=== PATIENT | male | born 1950 | race African-American/Black ===

== ENCOUNTER 2018-03-31 08:19 | Day surgery (SDC) | payer OTHER ==
[~2018-03-31] VITALS: Ht 180.3 cm; Wt 106.1 kg
[2018-03-31] VITALS (11 sets, daily range): BP systolic 113–148; BP diastolic 70–95
--- NOTE | 2018-03-31 07:06 | Pre-Procedure Note/Attestation ---
Pre-Procedure Note/Attestation Complete Prior to Procedure Planned Procedure: right Procedure Narrative: rt knee scope, medial meniscectomy and chondroplasty Indications for Procedure Pre-Operative Diagnosis: rt knee medial meniscus tear Attestation I attest that I discussed the nature of the procedure; its benefits; risks and complications; and alternatives (and the risks and benefits of such alternatives ), prior to the procedure, with the patient (or the patient's legal leasing representative). I attest that, if there was a reasonable possibility of needing a blood transfusion, the patient (or the patient's legal leasing representative) was given the [facility] standardized written summary, pursuant to the Hardik Kinsey Blood Safety Act ([place] Health and Safety Code # 1645, as amended). I attest that I re-evaluated the patient just prior to the surgery and that there has been no change in the patient's H&P, except as documented below: none MUKUND MCKINNEY March 31, 2018 07:06
[~2018-03-31 08:19] MED LIST: COD LIVER OIL1 EAC1 ORAL; COSOPT EYE DROP10 M1 OP; EAC ORAL; FLAXSEED1000 MG ORAL; GARLIC OIL1000 MG ORAL; LATANOPROST2.5 ML BOTH EYES; SAW PALMETTO450 MG ORAL; VITAMIN C500 M1 ORAL; ceFAZolin 1gm in D5W 55ml IVP ONE; celeBREX 200mg Cap **SURGERY PATIENTS ONLY ORAL ONE; oxyCONTIN 20mg tab ORAL ONE
[2018-03-31] MEDS ORDERED: Tylenol #3 tab (300mg/30mg) ORAL PRN (09:00)
[2018-03-31] MEDS ORDERED: Norco 5mg/325mg tab ORAL PRN (09:00)
[2018-03-31] MEDS ORDERED: D5 1/2NS 1,000 ML IV SCH (09:00)
[2018-03-31] MEDS ORDERED: VITAMIN B6 PO (09:22)
[2018-03-31] MEDS ORDERED: TURMERIC ROOT5000 GM MC (09:22)
[2018-03-31] MEDS ORDERED: ASPIR 8181 MG ORAL (09:22)
[2018-03-31] MEDS ORDERED: celeBREX 200mg Cap **SURGERY PATIENTS ONLY ORAL ONE (09:52)
[2018-03-31] MEDS ORDERED: oxyCONTIN 20mg tab ORAL ONE (09:52)
[2018-03-31] MEDS ORDERED: Midazolam 2mg/2ml Inj ONE (10:49)
[2018-03-31] MEDS ORDERED: Lidocaine 1% MPF 10mg/ml 5ml ONE (10:49)
[2018-03-31] MEDS ORDERED: fentaNYL 100 mcg/2 mL IV ONE (10:49)
[2018-03-31] MEDS ORDERED: Propofol 200mg/20ml IV ONE (10:49)
--- NOTE | 2018-03-31 10:53 | Anethesia Preoperative Eval ---
Anesthesia Pre-op PMH/ROS General Date of Evaluation: March 31, 2018 Anesthesiologist: Harshil ASA Score: ASA 2 Mallampati Score Class I : Soft palate, uvula, fauces, pillars visible Class II: Soft palate, uvula, fauces visible Class III: Soft palate, base of uvula visible Class IV: Only hard plate visible Mallampati Classification: Class III Surgeon: Efren Diagnosis: Right knee pain Surgical Procedure: Right knee surgery Anesthesia History: none Family History: no anesthesia problems Allergies: Coded Allergies: No Known Allergies (Unverified , 03/31/18) Medications: see eMAR Past Medical History Cardiovascular: Denies: HTN, CAD, [place], valve dz, arrhythmia, other Pulmonary: Denies: asthma, COPD, DREW, other Gastrointestinal/Genitourinary: Denies: GERD, CRI, ESRD, other Neurologic/Psychiatric: Denies: dementia, CVA, depression/anxiety, TIA, other Endocrine: Denies: DM, hypothyroidism, steroids, other HEENT: Denies: cataract (L), cataract (R), glaucoma, [place] (L), [place] (R), other Hematology/Immune: Denies: anemia, DVT, bleeding disorder, other Musculoskeletal/Integumentary: Denies: OA, RA, DJD, DDD, edema, other Other: obesity PSxH Narrative: cat sx, left elbow, left knee, left shoulder sx Anesthesia Pre-op Phys. Exam Physician Exam Last Vital Signs Date Time Temp Pulse Resp B/P (MAP) Pulse Ox O2 Delivery O2 Flow Rate FiO2 03/31/18 09:16 97.0 70 18 113/70 100 Room Air 97.0 Constitutional: NAD Cardiovascular: RRR Respiratory: CTA Airway Exam Mallampati Score: Class III MO: limited ROM: full Teeth: intact Anesthesia Pre-op A/P Labs see chart Studies Pre-op Studies: EKG - sr Risk Assessment & Plan Assessment: ASA II Plan: GA Status Change Before Surgery: No Pre-Antibiotics Drug: Ancef 2g Given Within 1 Hr of Incision: SLICK Sheets M.D. March 31, 2018 10:53
[2018-03-31] MEDS ORDERED: LR 1000ml 1,000 ML IVLG SCH (10:54)
--- NOTE | 2018-03-31 10:57 | 48 Hour Post Anesthesia Eval ---
Post Anesthesia Evaluation Procedure: Right knee arthroscopy, medial meniscectomy Date of Evaluation: March 31, 2018 Airway: patent Nausea: No Vomiting: No Pain Intensity: 0 Hydration Status: adequate Cardiopulmonary Status: at baseline Mental Status/LOC: patient returned to baseline Post-Anesthesia Complications: 0 Follow-up care needed: ready to discharge SLICK EDWARD M.D. March 31, 2018 10:57
--- NOTE | 2018-03-31 10:57 | Immediate Post-Op Evaluation ---
Immediate Post-Op Evalulation Immediate Post-Op Evalulation Procedure: Right knee arthroscopy, medial meniscectomy Date of Evaluation: March 31, 2018 Time of Evaluation: 12:04 IV Fluids: 800 Blood Products: 0 Estimated Blood Loss: 0 Urinary Output: 0 Blood Pressure Systolic: 119 Blood Pressure Diastolic: 85 Pulse Rate: 77 Respiratory Rate: 16 O2 Sat by Pulse Oximetry: 100 Temperature (Fahrenheit): 97.9 Pain Score (1-10): 0 Nausea: No Vomiting: No Complications 0 Patient Status: awake, reacts, patent, none Hydration Status: adequate Drug: Ancef 2g Given Within 1 Hr of Incision: Yes Time Given: 11:20 SLICK EDWARD M.D. March 31, 2018 10:57
[2018-03-31] MEDS ORDERED: LORazepam Inj 2mg/ml 1ml IV PRN (11:00)
[2018-03-31] MEDS ORDERED: fentaNYL 100 mcg/2 mL IV PRN (11:00)
[2018-03-31] MEDS ORDERED: LR 1000ml ONE (11:00)
[2018-03-31] MEDS ORDERED: Ketorolac 30mg Inj IV PRN (11:00)
[2018-03-31] MEDS ORDERED: Midazolam 2mg/2ml Inj IVP PRN (11:00)
[2018-03-31] MEDS ORDERED: DiphenhydrAMINE 50mg/ml Inj IVP PRN (11:00)
[2018-03-31] MEDS ORDERED: Ropivacaine 5mg/ml Vial 30ml INJ ONE (11:08)
--- NOTE | 2018-03-31 11:49 | Brief Operative Note ---
Immediate Post Operative Note Operative Note Chief Complaint: rt knee pain Pre-op Diagnosis: rt knee medial meniscus tear Procedure: rt knee scope, medial and lateral meniscectomy with chondroplasty Post-op Diagnosis: same as pre-op Findings: consistent w/pre-op dx studies Surgeon: md satish Warehouse Supervisor 3Rd Shift: ángela rodriguez Anesthesiologist: md mk Anesthesia: general Specimen: none Complications: none Condition: stable Fluids: ns Estimated Blood Loss: minimal Drains: none Implant(s) used?: No BETI RODRIGUEZ March 31, 2018 11:49
--- NOTE | 2018-03-31 16:30 | Operative Note - Dictated ---
DATE OF OPERATION: 03/31/2018 PREOPERATIVE DIAGNOSIS: Right knee medial meniscus tearing with swelling and pain. POSTOPERATIVE DIAGNOSES: 1. 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 2. Right knee free edge tear of the posterior horn body of lateral meniscus. 3. Right knee evidence of prior meniscectomy with recurrent meniscus tearing of the posterior horn body of meniscus involving 20% of the remnant. 4. Right knee chondral damage over the weightbearing zone of medial femoral condyle measuring 1.2 cm x 1 cm with unstable chondral flap grade 4. PROCEDURE: 1. Right knee arthroscopy and extensive intra-articular shaving. 2. Right knee patellofemoral chondroplasty. 3. Right knee medial femoral abrasion chondroplasty of 1.2 cm lesion. 4. Right knee partial lateral meniscectomy involving 15% of posterior horn body of lateral meniscus. 5. Right knee partial revision medial meniscectomy involving 15% of the remnant of the posterior horn body of medial meniscus. SURGEON: Ramez Deluna M.D. POLICE SERGEANT: Stephanie Pratt PA-C. Press Shop Supervisor was present during the actual operative portion of the case and was important and essential part of the operation. During the operation, the hospital aides and assistants teacher held and operated the arthroscopic camera for visualization, assisted by manipulating the leg to help with visualization, and helped with essential parts of the repair process as necessary such as operating surgical instruments under surgeon supervision, suture management, and wound closures. ANESTHESIOLOGIST: Dr. Chua. ANESTHESIA: LMA anesthesia EBL: Less than 20 mL. COMPLICATIONS: None. SURGICAL INDICATION: Patient is a 68-year-old male who sustained the above injury to his Knee. The patient was treated non-operative initially, but this did not alleviate the patients symptoms. Therefore, after discussing all non-surgical and surgical options, and discussing all foreseeable risk and benefits of surgery, the patient opted for surgical treatment as described above. PATIENT POSITIONING: Patient was brought to the operating room table and placed supine. All pressure points were well padded. General Anesthesia was induced and a well padded tourniquet was placed on the thigh. The lateral post was placed and positioned to allow for opening of the medial compartment of the knee without placing pressure over the fibular head. Patients entire leg was prepped and draped in the usual sterile fashion. Time out was perfomred and preop abx was given and after exsanguinating the lower extremity, the tourniquet was inflated to 275mm of mercury. EXAMINATION OF THE KNEE UNDER ANESTHESIA: Before prepping and draping the knee and while the patient was relaxed under general anesthesia, the knee was examined for ROM, and anterior and posterior, medial and lateral, posterolateral, and posteromedial instability. Pivot shift testing was performed. There was no evidence of loss of motion or instability and the pivot shift testing was negative. PORTAL PLACEMENT: The lateral portal was placed with the knee flexed to 90 degrees at the level of inferior border of the patella in line with the lateral border of the patella. A cm skin incision was made with an eleven blade, and using a blunt obturator, the capsule was gently penetrated. Sterile saline solution was then infused inside the knee with the aid of a pump set at 35 mm mercury pressure. Under direct visualization, placement of the medial portal was preliminary judged using a spinal needle, and it was subsequently established using the same technique as the lateral portal. Care was given not to injure the cutaneous branches of the medial Saphenous nerve or the subcutaneous veins. DIAGNOSTIC ARTHROSCOPY: The suprapatellar patellar pouch was visualized. There was no evidence of scar tissue or loose fragments. The medial and lateral patellar facets and trochlear groove articular cartilage was visualized. There was some traumatic chondral lesion over the lateral patellar facet inferiorly. This is consistent with traumatic lesion due to the fact that there was no trochlear lesion and this was not degenerative and arthritic in nature. The medial plica shelf and the corresponding medial femoral condyle articular cartilage were visualized. There was no significantly thickening of the medial plica shelf and there were no kissing? lesion over the medial femoral condyle. The lateral gutter and the posterolateral corner of the knee were visualized. There were no loose bodies, and the popliteus tendon and other structures of the posterolateral corner of the knee were intact intra-articularly. At this point, the knee was placed in the figure of four position and the lateral compartment was entered. The lateral femoral condyle, lateral tibial plateau, and the anterior, body, and the posterior horn of the lateral meniscus were visualized and probed. The articular surfaces were intact and devoid of articular cartilage damage. There was a free edge tear of the posterior horn and body lateral meniscus involving 15% to 20% lateral meniscus. The knee was then placed at 90 degree and the ACL and PCL were visualized and probed. The ACL was completely intact on visualization and probing, and it had excellent tension. The PCL was completely intact on visualization and probing and it had excellent tension. The medial compartment was then entered and the medial femoral condyle, medial tibial plateau, and the anterior, body, and the posterior horn of the medial meniscus were visualized and probed. There was a chondral lesion measuring 1.2 cm x 1 cm over the weightbearing zone of medial femoral condyle. This was grade 4 chondromalacia. There was some unstable chondral edges. There was evidence of previous meniscectomy and there was 15% tear of the remnant of the posterior horn body of medial meniscus. The medial gutter was visualized. There was no evidence of defect or loose fragments. The scope was then brought back to the patella femoral compartment. OPERATIVE ARTHROSCOPY: At this point, all loose debris and fragments were removed with the use of suction motorized shaver. Specific attention was given to assure all visible loose fragments were irrigated out of the knee joint with pump inflow and cannula outflow system. For patella femoral chondroplasty, The frayed articular cartilage of the undersurface of the patella and the trochlear groove were debrided using a motorized shaver. Suction was used to pull in the loose fragments and flaps of the cartilage and to minimize damage to the intact and well attached portion of the cartilage. This allowed for a smooth surface for the articular cartilage gliding. For lateral meniscectomy, at this point, attention was given to the lateral meniscus. Using combination of baskets and sameer, the torn portion of the lateral meniscus was removed. Attention was given to remove all displaced and unstable portion of the lateral meniscus while maintaining as much of the functional portion of the meniscus as possible. Approximately, 15% to 20% of the posterior horn body of the meniscus was removed in this fashion. The transition between the meniscectomy portion and intact portion of the meniscus was smoothed out with combination of small baskets and sameer. Excellent transition zone was obtained in this fashion. For medial meniscectomy, At this point, attention was given to the medial meniscus. Using combination of baskets and sameer, the torn portion of the medial meniscus was removed. Attention was given to remove all displaced and unstable portion of the medial meniscus while maintaining as much of the functional portion of the meniscus as possible. Approximately, 15% of the posterior horn body of the medial meniscus was removed in this fashion. The transition between the meniscectomy portion and intact portion of the meniscus was smoothed out with combination of small baskets and sameer. Excellent transition zone was obtained in this fashion. For medial compartment chondroplasty, care was given to the area of cartilage damage in the medial compartment. The fayed and loose fragments of articular cartilage were debrided using a motorized shaver. Suction was used to pull in the loose fragments and flaps of the cartilage and to minimize damage to the intact and well attached portion of the cartilage. This allowed for smooth surfaces for the articular cartilage. At this point, care was given to the abrasion chondroplasty using a shaver in forward motion, a slight abrasion of the medial femoral condyle was performed debriding blood supply to the surface of the bone for fibrocartilage regeneration. The contour of the femur was not altered in any manner. All unstable cartilage flaps were removed. CONDITION AT DISCHARGE FROM OPERATING ROOM: The knee was irrigated with copious amount of normal saline at the end of the procedure. The scope was removed and the water was drained. The skin edges were re-approximated and sterile dressing was applied. All lap count and instrument counts were correct. Patient tolerated the procedure well without complications and was taken to the recovery room in stable conditions. Ramez Deluna M.D. DR: Lane JOB#: [id number] CC:
== END 2018-03-31 14:00 | disposition home or self-care (01) ==
LOC: SUR 08:19
DX: S83.241A Other tear of medial meniscus, current injury, right knee, initial encounter (principal); S83.281A Other tear of lateral meniscus, current injury, right knee, initial encounter; E78.5 Hyperlipidemia, unspecified; X58.XXXA Exposure to other specified factors, initial encounter; Y93.9 Activity, unspecified; Y92.9 Unspecified place or not applicable
CPT/HCPCS: 29880; J0690; J2250; J2704; J2795; J3010; J7120

== ENCOUNTER → 2018-09-15 | Day surgery (SDC) | payer OTHER ==
[2018-09-15] VITALS (9 sets, daily range): BP systolic 118–148; BP diastolic 78–97
[~2018-09-15] VITALS: Ht 180.3 cm; Wt 104.3 kg
[~2018-09-15] MED LIST changes: +ASPIR 8181 MG ORAL; +Bupivacaine w/Epi 0.5% 30ml Vial INJ ONE; +D5 1/2NS 1,000 ML IV SCH; +GINGER ROOT1 GM MC; +HYDROmorphone 1mg/ml Carpuject SUBQ PRN; +LR 1000ml ONE; +Lidocaine 1% MPF 10mg/ml 5ml ONE; +Metoclopramide 10mg/2ml Inj ONE; +Midazolam 2mg/2ml Inj ONE; +NS Irrig 4000ml IRRIG ONE; +Norco 5mg/325mg tab ORAL PRN; +Propofol 200mg/20ml IV ONE; +Ropivacaine 5mg/ml Vial 30ml INJ ONE; +TURMERIC ROOT5000 GM MC; +Tylenol #3 tab (300mg/30mg) ORAL PRN; +VITAMIN B6 PO; +ceFAZolin 1gm IVPB IVPB ONE; -ceFAZolin 1gm in D5W 55ml IVP ONE; +fentaNYL 100 mcg/2 mL IV ONE; +fentaNYL 100 mcg/2 mL IV PRN
--- NOTE | 2018-09-15 07:01 | Pre-Procedure Note/Attestation ---
Pre-Procedure Note/Attestation Complete Prior to Procedure Planned Procedure: left Procedure Narrative: left knee scope, medial meniscectomy and chondroplasty Indications for Procedure Pre-Operative Diagnosis: left knee medial meniscus tear Attestation I attest that I discussed the nature of the procedure; its benefits; risks and complications; and alternatives (and the risks and benefits of such alternatives ), prior to the procedure, with the patient (or the patient's legal escrow representative). I attest that, if there was a reasonable possibility of needing a blood transfusion, the patient (or the patient's legal escrow representative) was given the [facility] standardized written summary, pursuant to the Hardik Kinsey Blood Safety Act ([place] Health and Safety Code # 1645, as amended). I attest that I re-evaluated the patient just prior to the surgery and that there has been no change in the patient's H&P, except as documented below: none Ramez Deluna MD Sep 15, 2018 07:01
--- NOTE | 2018-09-15 11:19 | Anethesia Preoperative Eval ---
Anesthesia Pre-op PMH/ROS General Date of Evaluation: Sep 15, 2018 Time of Evaluation: 10:30 Anesthesiologist: luli ASA Score: ASA 2 Mallampati Score Class I : Soft palate, uvula, fauces, pillars visible Class II: Soft palate, uvula, fauces visible Class III: Soft palate, base of uvula visible Class IV: Only hard plate visible Mallampati Classification: Class II Surgeon: EVER Diagnosis: knee pain Surgical Procedure: Left knee arthroscopy Anesthesia History: none Family History: no anesthesia problems Allergies: Coded Allergies: No Known Allergies (Unverified , 09/15/18) Medications: see eMAR Patient NPO?: Yes NPO Date: Sep 14, 2018 NPO Time: 23:59 Past Medical History Cardiovascular: Denies: HTN, CAD, [place], valve dz, arrhythmia, other Pulmonary: Denies: asthma, COPD, DREW, other Gastrointestinal/Genitourinary: Denies: GERD, CRI, ESRD, other Neurologic/Psychiatric: Denies: dementia, CVA, depression/anxiety, TIA, other HEENT: Denies: cataract (L), cataract (R), glaucoma, [place] (L), [place] (R), other Hematology/Immune: Denies: anemia, DVT, bleeding disorder, other Musculoskeletal/Integumentary: Reports: DJD PSxH Narrative: rigth knee scope Anesthesia Pre-op Phys. Exam Physician Exam Last Vital Signs Date Time Temp Pulse Resp B/P (MAP) Pulse Ox O2 Delivery O2 Flow Rate FiO2 09/15/18 10:00 Room Air 09/15/18 10:00 98.7 63 18 118/82 99 98.7 Constitutional: NAD Neurologic: CN 2-12 intact Cardiovascular: RRR Respiratory: CTA Gastrointestinal: S/NT/ND Airway Exam Mallampati Classification 2 Mallampati Score: Class II MO: full ROM: full Dentures: no upper, no lower Anesthesia Pre-op A/P Studies Pre-op Studies: EKG - sr Risk Assessment & Plan Plan: general lma Status Change Before Surgery: No Pre-Antibiotics Drug: ancef Given Within 1 Hr of Incision: Yes Time Given: 10:35 Adamaris Pollard CRNA Sep 15, 2018 11:19
--- NOTE | 2018-09-15 11:27 | Brief Operative Note ---
Immediate Post Operative Note Operative Note Chief Complaint: left knee pain Pre-op Diagnosis: left knee medial meniscus tear Procedure: left knee scope medial and lateral meniscectomy and chondroplasty Post-op Diagnosis: same as pre-op Findings: consistent w/pre-op dx studies Surgeon: md satish Lean Leader: ángela rodriguez Anesthesiologist: md addison/cuco Anesthesia: general Specimen: none Complications: none Condition: stable Fluids: ns Estimated Blood Loss: minimal Drains: none Implant(s) used?: No Stephanie Rodriguez Sep 15, 2018 11:27
--- NOTE | 2018-09-15 11:41 | Immediate Post-Op Evaluation ---
Immediate Post-Op Evalulation Immediate Post-Op Evalulation Procedure: left knee arthroscopy Date of Evaluation: Sep 15, 2018 Time of Evaluation: 11:35 IV Fluids: 500 Blood Pressure Systolic: 137 Blood Pressure Diastolic: 91 Pulse Rate: 68 Respiratory Rate: 14 O2 Sat by Pulse Oximetry: 100 Temperature (Fahrenheit): 97.8 Pain Score (1-10): 0 Nausea: No Vomiting: No Complications none Patient Status: awake, reacts, patent Hydration Status: adequate Drug: ancef Given Within 1 Hr of Incision: Yes Time Given: 10:55 Adamaris Pollard CRNA Sep 15, 2018 11:41
--- NOTE | 2018-09-15 13:30 | 48 Hour Post Anesthesia Eval ---
Post Anesthesia Evaluation Procedure: left knee arthroscopy Date of Evaluation: Sep 15, 2018 Time of Evaluation: 13:30 Nausea: No Vomiting: No Geronimo Landon MD Sep 15, 2018 13:30
--- NOTE | 2018-09-15 23:00 | Operative Note - Dictated ---
DATE OF OPERATION: 09/15/2018 PREOPERATIVE DIAGNOSIS: Left knee meniscus tear. POSTOPERATIVE DIAGNOSES: 1. Left knee free edge tear of the posterior horn of lateral meniscus involving 15% of the lateral meniscus. 2. Left knee complex tear of the posterior horn and body of the medial meniscus involving the vertical tear as well as a horizontal cleavage tear involving 25% of the medial meniscus. 3. Left knee mild patellofemoral arthritis with some osteophytes. 4. Left knee focal area of chondral damage over the medial tibial plateau measuring 7 x 7 mm around the area of the medial meniscus tear as well as a 1.5 x 1.5 cm of the diffuse chondral damage over the medial femoral condyle corresponded to the area of the medial meniscus tear. PROCEDURE: 1. Left knee arthroscopy and extensive intra-articular shaving. 2. Left knee patellofemoral as well as medial femoral chondroplasty. 3. Left knee partial lateral meniscectomy involving 15% of posterior horn of the lateral meniscus. 4. Left knee partial medial meniscectomy involving 25% of posterior horn body of the medial meniscus. SURGEON: Ramez Deluna M.D. [employer] PROFESSOR: Stephanie Pratt PA-C. ANESTHESIOLOGIST: Stephanie Sutherland MD ANESTHESIA: General LMA anesthesia combined with adductor block. ESTIMATED BLOOD LOSS: Less than 20 mL. TOURNIQUET TIME: 35 minutes. COMPLICATIONS: None. SURGICAL INDICATION: The patient is a 68-year-old male, who sustained the above injury to his knee. The patient was treated non-operative initially, but this did not alleviate the patients symptoms. Therefore, after discussing all non-surgical and surgical options, and discussing all foreseeable risk and benefits of surgery, the patient opted for surgical treatment as described above. PATIENT POSITIONING: Patient was brought to the operating room table and placed supine. All pressure points were well padded. General Anesthesia was induced and a well padded tourniquet was placed on the thigh. The lateral post was placed and positioned to allow for opening of the medial compartment of the knee without placing pressure over the fibular head. Patients entire leg was prepped and draped in the usual sterile fashion. Time out was performed and preop abx was given and after exsanguinating the lower extremity, the tourniquet was inflated to 275 mm of mercury. EXAMINATION OF THE KNEE UNDER ANESTHESIA: Before prepping and draping the knee and while the patient was relaxed under general anesthesia, the knee was examined for ROM, and anterior and posterior, medial and lateral, posterolateral, and posteromedial instability. Pivot shift testing was performed. There was no evidence of loss of motion or instability and the pivot shift testing was negative. PORTAL PLACEMENT: The lateral portal was placed with the knee flexed to 90 degrees at the level of inferior border of the patella in line with the lateral border of the patella. A cm skin incision was made with an eleven blade, and using a blunt obturator, the capsule was gently penetrated. Sterile saline solution was then infused inside the knee with the aid of a pump set at 35 mm mercury pressure. Under direct visualization, placement of the medial portal was preliminary judged using a spinal needle, and it was subsequently established using the same technique as the lateral portal. Care was given not to injure the cutaneous branches of the medial Saphenous nerve or the subcutaneous veins. DIAGNOSTIC ARTHROSCOPY: The suprapatellar patellar pouch was visualized. There was no evidence of scar tissue or loose fragments. The medial and lateral patellar facets and trochlear groove articular cartilage was visualized. There was some chondral damage over the medial and lateral tibial patella facet as well as some chondral damage over the trochlea, however, there was no [id number] contact, there were some osteophytes of the distal end of the patella. The medial plica shelf and the corresponding medial femoral condyle articular cartilage were visualized. There was no significantly thickening of the medial plica shelf and there were no "kissing" lesion over the medial femoral condyle. The lateral gutter and the posterolateral corner of the knee were visualized. There were no loose bodies, and the popliteus tendon and other structures of the posterolateral corner of the knee were intact intra-articularly. At this point, the knee was placed in the figure of four position and the lateral compartment was entered. The lateral femoral condyle, lateral tibial plateau, and the anterior, body, and the posterior horn of the lateral meniscus were visualized and probed. The articular surfaces were intact and devoid of articular cartilage damage. There was a free edge tear of the posterior horn and posterior horn of the lateral meniscus involving 15% of the lateral meniscus. The knee was then placed at 90 degree and the ACL and PCL were visualized and probed. The ACL was completely intact on visualization and probing, and it had excellent tension. The PCL was completely intact on visualization and probing and it had excellent tension. The medial compartment was then entered and the medial femoral condyle, medial tibial plateau, and the anterior, body, and the posterior horn of the medial meniscus were visualized and probed. There was some chondral damage diffusely over the femur measuring 1.5 x 1.5 cm corresponds to the area of the medial meniscus tear. Also, there was a focal area of chondral damage over the posterior medial aspect of the tibial plateau corresponding to the area of the medial meniscus tearing. This measures 7 x 6 mm. There was a complex tear of the posterior horn and body of the medial meniscus involving the vertical as well as a horizontal cleavage tear. There was evidence of a prior meniscectomy done in that area. The medial gutter was visualized. There was no evidence of defect or loose fragments. The scope was then brought back to the patella femoral compartment. OPERATIVE ARTHROSCOPY: At this point, all loose debris and fragments were removed with the use of suction motorized shaver. Specific attention was given to assure all visible loose fragments were irrigated out of the knee joint with pump inflow and cannula outflow system. For patella femoral chondroplasty, the frayed articular cartilage of the undersurface of the patella and the trochlear groove were debrided using a motorized shaver. Suction was used to pull in the loose fragments and flaps of the cartilage and to minimize damage to the intact and well attached portion of the cartilage. This allowed for a smooth surface for the articular cartilage gliding. For lateral meniscectomy, at this point, attention was given to the lateral meniscus. Using combination of baskets and sameer, the torn portion of the lateral meniscus was removed. Attention was given to remove all displaced and unstable portion of the lateral meniscus while maintaining as much of the functional portion of the meniscus as possible. Approximately, 15% of the posterior horn of the meniscus was removed in this fashion. The transition between the meniscectomy portion and intact portion of the meniscus was smoothed out with combination of small baskets and sameer. Excellent transition zone was obtained in this fashion. For medial meniscectomy, at this point, attention was given to the medial meniscus. Using combination of baskets and sameer, the torn portion of the medial meniscus was removed. Attention was given to remove all displaced and unstable portion of the medial meniscus while maintaining as much of the functional portion of the meniscus as possible. Approximately, 25% of the posterior horn and body of the medial meniscus was removed in this fashion. The transition between the meniscectomy portion and intact portion of the meniscus was smoothed out with combination of small baskets and sameer. Excellent transition zone was obtained in this fashion. For medial compartment chondroplasty, care was given to the area of cartilage damage in the medial compartment. The fayed and loose fragments of articular cartilage were debrided using a motorized shaver. Suction was used to pull in the loose fragments and flaps of the cartilage and to minimize damage to the intact and well attached portion of the cartilage. This allowed for smooth surfaces for the articular cartilage. CONDITION AT DISCHARGE FROM OPERATING ROOM: The knee was irrigated with copious amount of normal saline at the end of the procedure. The scope was removed and the water was drained. The skin edges were re-approximated and sterile dressing was applied. All lap count and instrument counts were correct. The patient tolerated the procedure well without complications and was taken to the recovery room in stable conditions. Ramez Deluna M.D. DR: GÓMEZ JOB#: [id number] CC: STAR
== END | disposition home or self-care (01) ==
LOC: SUR 09:31
DX: M23.222 Derangement of posterior horn of medial meniscus due to old tear or injury, left knee (principal); M23.252 Derangement of posterior horn of lateral meniscus due to old tear or injury, left knee; M17.12 Unilateral primary osteoarthritis, left knee; M25.762 Osteophyte, left knee; M94.9 Disorder of cartilage, unspecified; E78.5 Hyperlipidemia, unspecified; M19.90 Unspecified osteoarthritis, unspecified site; R73.02 Impaired glucose tolerance (oral); E66.9 Obesity, unspecified; H40.1190 Primary open-angle glaucoma, unspecified eye, stage unspecified
CPT/HCPCS: 29880; J0690; J2250; J2405; J2704; J2765; J2795; J3010; 94003; 94150